=== PATIENT | female | born 1940 | race Caucasian/White ===

== ENCOUNTER 2018-12-01 16:59 | Observation (INO) ==
[2018-12-01] MEDS ORDERED: Acetaminophen 325 MG TABLET PO PRN (21:23)
[2018-12-01] MEDS ORDERED: Naloxone 0.4 MG/ML INJ IVP PRN (21:23)
[2018-12-01] MEDS ORDERED: Ondansetron 4 MG/2 ML VIAL IVP PRN (21:23)
--- NOTE | 2018-12-01 22:07 | Internal Med History&Physical ---
Date of Encounter: 12/01/18 Time of Encounter: 20:10 Internal Medicine - H&P: HPI Chief complaint: back pain Admitted From: Hospital to Hospital Transfer Plans for Post Hospital Care: Home History of present illness: Ms. Szymanski is a 78 year old female who presents in transfer from [facility] ER for complaints of intractable back pain. She has been seeing Dr. Chapa for pain management and undergoing spinal injections for pain control. However, over the last 4-5 days, she developed severe and intractable back pain. Dr. Chapa put her on some [place] with limited relief. She was unable to ambulate and/or move to the bathroom without excruciating pain radiating to her legs. She therefore came to ER at [facility] and underwent MRI of her spine. She was found to have evidence of disc protrusion at the T2-T3 level without any stenosis. Lumbar spine was nondiagnostic due to obscured views from her metallic hardware. She was therefore sent to [facility] for pain control and consultation with pain management. Upon my assessment of the patient, she is lying in bed and does not appear to be in any distress. She denies any numbness or weakness. She has chronic paresthesias of her legs which are not new. She denies any foot drop, paralysis, loss of bowel or bladder function, and/or numbness. Her only complaint is severe and intractable back pain from her mid back down to her legs, especially with ambulation and/or raising the legs. I reviewed her medication list and drug allergies. She states Percocet usually does well for her, and she can tolerate Percocet with good pain control and no adverse reactions. She received 2 doses of IV morphine at [facility] with significant relief of her pain but is making her dizzy and somewhat intoxicated. She prefers to try oral medications first. She requests consultation with pain management and/or possible spine surgery for definitive plan of her pain control. She does not wish to consider surgical intervention as she has had multiple back surgeries in the past. Past Med Surg Social Fam HX - Past Medical History Attestation: Yes The following information was validated with the patient. Source: patient Medical history: arthritis, CHF, coronary artery disease, GERD, hyperlipidemia, hypertension, migraine, thyroid disease Additional medical history: Hypothyroidism Psychiatric history: anxiety, bipolar, depression, panic disorder - Past Surgical History Surgical History: cholecystectomy, hysterectomy, knee replacement, orthopedic, other Additional surgical history: Back surgeries - Social History Smoking Status: Never smoker Smokeless Tobacco Status: No Alcohol use: rarely Drug use: none Current living situation: Home, With Family Activity Level: Independent ambulation Recent Out of Country Travel Within the Last 8 Weeks: No - Family History Mother Living Status: Hx Family Musculoskeletal Disorders: No Father Living Status: Hx Family Musculoskeletal Disorders: No Internal Medicine - H&P: Meds Levothyroxine [Synthroid] 75 mcg PO 0630 05/17/15 [History] Losartan [Cozaar] 50 mg PO BID 05/17/15 [History] LORazepam [Ativan] 1 mg PO BID 07/11/17 [History] Ranitidine HCl [Acid Ice Cream Maker] 150 mg PO DAILY 07/11/17 [History] Aspirin 325 mg PO DAILY 12/01/18 [History] Biotin 1,000 mg PO DAILY 12/01/18 [History] Cyclobenzaprine [Flexeril] 10 mg PO TID PRN 12/01/18 [History] Doxepin HCl 10 mg PO HS 12/01/18 [History] FLUoxetine HCl [PROzac] 60 mg PO DAILY 12/01/18 [History] Gabapentin [Neurontin] 800 mg PO TID 12/01/18 [History] HYDROcodone/Acet 5/325 mg [[place] 5-325 mg] 1 tab PO Q6H PRN 12/01/18 [History] Oxybutynin [Ditropan] 5 mg PO BID 12/01/18 [History] Zolmitriptan [Zomig] 5 mg PO DAILY PRN 12/01/18 [History] Allergy/AdvReac Type Severity Reaction Status Date / Time carbamazepine [From Tegretol] Allergy Difficulty Verified 11/22/16 21:41 Swallowing celecoxib [From Celebrex] Allergy Rash Verified 11/22/16 21:41 duloxetine [From Cymbalta] Allergy Difficulty Verified 11/22/16 21:41 Breathing naproxen [From Naprosyn] Allergy Rash Verified 12/01/18 20:23 NSAIDS (Non-Steroidal Allergy Anxiety Verified 12/01/18 20:23 Anti-Inflamma pregabalin [From Lyrica] Allergy Difficulty Verified 11/22/16 21:41 Breathing quetiapine [From Seroquel] Allergy Unresponsiv Verified 12/01/18 20:23 e rofecoxib [From Vioxx] Allergy Rash Verified 12/01/18 20:23 Sulfa (Sulfonamide Allergy Hives Verified 12/01/18 20:23 Antibiotics) titanium Allergy See Verified 12/01/18 20:23 Comments baclofen AdvReac Confusion Verified 12/01/18 20:23 citalopram [From Celexa] AdvReac Confusion Verified 12/01/18 20:23 latex AdvReac Rash Verified 12/01/18 20:23 levofloxacin [From Levaquin] AdvReac Weakness Verified 12/01/18 20:23 oxycodone [From OxyContin] AdvReac Confusion Verified 12/01/18 20:23 Ydqkygx-Mmw-Sqf Reductase AdvReac Weakness Verified 12/01/18 20:23 Inhibitor [Statins] Verapamil AdvReac Anxiety Verified 12/01/18 20:23 - Constitutional Constitutional: no chills, no fever(s), no night sweats - EENT Eyes: no blurry vision, no change in vision Ears: no ear pain, no tinnitus Nose, mouth and throat: no nasal congestion, no sinus pressure, no sore throat - Cardiovascular Cardiovascular ROS IM: no chest pain, no dyspnea, no lightheadedness, no orthopnea, no paroxysmal nocturnal dyspnea, no syncope - Respiratory Respiratory: no cough, no dyspnea, no chest congestion, no excessive phlegm production - Gastrointestinal Gastrointestinal: no abdominal pain, no diarrhea, no hematemesis, no hematochezia, no melena, no nausea, no vomiting - Genitourinary Genitourinary: no dysuria, no flank pain, no hematuria - Musculoskeletal Musculoskeletal ROS IM: arthralgias, back pain, no neck pain, no numbness, no tingling - Integumentary Integumentary IM: no rash, no jaundice - Neurological Neurological ROS: paresthesias (chronic peripheral neuropathy in her feet -- not new), no convulsions, no dizziness, no focal weakness, no frequent falls, no headache(s) - Psychiatric Psychiatric: anxiety - Endocrine Endocrine IM: no polydipsia, no polyuria - Allergic/Immunologic Allergic/Immunologic: no GI upset with certain foods - Constitutional Vitals: Temp Pulse Resp BP Pulse Ox 98.3 F 61 17 181/72 96 12/01/18 19:15 12/01/18 19:15 12/01/18 19:15 12/01/18 19:15 12/01/18 19:15 General appearance: Present: cooperative, A&O X 3, pleasant, answers questions appropriately Exam: moderate pain in back - Head Head exam: Present: atraumatic, normal inspection - Eye Eye exam: Present: EOMI, PERRL. Absent: scleral icterus - ENT ENT exam: Present: mucous membranes dry, normal exam, normal oropharynx - Neck Neck exam general surgery: Present: full ROM, supple, trachea midline. Absent: tenderness, nuchal rigidity, thyromegaly - Respiratory Respiratory exam: Present: CTAB. Absent: chest wall tenderness, rales, rhonchi, wheezes - Cardiovascular Cardiovascular exam: Present: RRR, +S1, +S2. Absent: diastolic murmur, systolic murmur - GI/Abdominal GI/Abdominal exam: Present: normal bowel sounds, soft. Absent: guarding, hepatomegaly, mass, rebound, splenomegaly, tenderness - Extremities Exam Extremities exam: Present: full ROM, normal capillary refill, warm, radial pulses palpable and symmetrical. Absent: calf tenderness, pedal edema, tenderness - Back Exam Additional comments: pain in mid-low back on palpation - Neurological Exam Neurological exam: Present: alert, CN II-XII intact, oriented X3, reflexes normal, no focal deficits, strengths equal and symetr throughout Additional comments: no focal deficits other than chronic neuropathy in feet - Psychiatric Psychiatric exam: Present: anxious - Skin Skin exam: Present: dry, intact, warm Internal Med - H&P Results - Labs Labs: I reviewed her labs from [facility] and include the following: WBC 4.4 Hemoglobin 11.7 Hematocrit 35.5 Platelets 189 Sodium 143 Potassium 4.2 Chloride 109 CO2 27 BUN 19 Creatinine 1.21 MRI findings reviewed - Assessment and Plan (1) Intractable low back pain Current Visit: Yes Status: Acute Assessment and plan: 1. Will try oral Percocet for now and add IV pain meds for breakthrough pain if necessary. 2. Will add systemic steroids. 3. Consult Pain management and spine surgery (if necessary). 4. PT/OT consults after adequate pain control. (2) Bipolar 1 disorder Current Visit: Yes Status: Acute Assessment and plan: 1. Resume home meds as appropriate. (3) DVT prophylaxis Current Visit: Yes Status: Acute Assessment and plan: 1. Heparin SQ.
[2018-12-01] MEDS: *HR* LORazepam 1 MG TABLET PO SCH (22:27)
[2018-12-01] MEDS: 0.9 % Sodium Chloride 1,000 ML IVC SCH (22:27)
[2018-12-01] MEDS: *HR* Heparin 5,000 UNIT/ML VIAL SQ SCH (22:27)
[2018-12-01] MEDS: Gabapentin 400 MG CAPSULE PO SCH (22:27)
[2018-12-02 03:30] LABS: Basophils % 0.7 %; Eosinophils # 0.2 K/mcL (0.0-0.6); Eosinophils % 3.5 %; Hematocrit 34.8 % (35.3-44.9); Hemoglobin 11.2 g/dL (11.5-15.4); Immature Granulocytes % 0.2 % (0-4); Lymphocytes # 1.8 K/mcL (0.6-4.6); Lymphocytes % 39.8 %; Mean Corpuscular HGB Conc 32.2 g/dL (31.6-35.5); Mean Corpuscular Hemoglobin 31.5 pg (28.0-33.3); Mean Corpuscular Volume 97.8 fL (83.0-100.0); Mean Platelet Volume 9.7 fL (9.4-12.4); Monocytes # 0.4 K/mcL (0.0-1.3); Monocytes % 8.9 %; Neutrophils # 2.2 K/mcL (1.6-8.9); Platelet Count 194 K/mcL (140-400); Red Blood Count 3.56 M/mcL (3.82-4.97); Red Cell Distribution Width 13.5 % (11.5-14.5); Segmented Neutrophils % 46.9 %
[2018-12-02 03:40] LABS: Prothrombin Time 11.5 Seconds (9.4-12.1)
[2018-12-02 03:43] LABS: Activated Partial Thrombo Time 32.2 Seconds (26.0-36.0)
[2018-12-02 03:47] LABS: Calcium 9.1 mg/dL (8.6-10.3); Magnesium 2.2 mg/dL (1.6-2.6)
[2018-12-02] MEDS: *HR* OxyCODONE/APAP 5/325 TABLET PO PRN ×2 (05:32→17:24)
[2018-12-02] MEDS: MethylPREDNISolone 40 MG/ML VIAL IVP SCH ×2 (05:33→18:18)
[2018-12-02] MEDS: Famotidine 20 MG TABLET PO SCH (05:33)
[2018-12-02] MEDS: *HR* Heparin 5,000 UNIT/ML VIAL SQ SCH ×2 (05:33→18:18)
[2018-12-02] MEDS: FLUoxetine 20 MG CAPSULE PO SCH (08:02)
[2018-12-02] MEDS: Aspirin 325 MG TABLET PO SCH (08:02)
[2018-12-02] MEDS: Gabapentin 400 MG CAPSULE PO SCH ×3 (08:03→20:22)
[2018-12-02] MEDS: *HR* LORazepam 1 MG TABLET PO SCH ×2 (08:03→20:22)
[2018-12-02] MEDS: 0.9 % Sodium Chloride 1,000 ML IVC SCH (08:07)
--- NOTE | 2018-12-02 08:18 | Internal Med Progress Note ---
<EarletonyIris - Last Filed: 12/02/18 11:15> Hospitalist Progress Note - Encounter Date of Encounter: 12/02/18 Time of Encounter: 09:59 - Subjective Interval History: Pt c/o LE pain and weakness, worse on the R than L, and made worse when her legs are not elevated and extended. Pt denies abdominal pain, loss of bowl or bladder control, n/v, trauma or falls. - Exam Vitals: Temp Pulse Resp BP Pulse Ox 98.7 F 60 14 153/68 93 12/02/18 06:57 12/02/18 06:57 12/02/18 06:57 12/02/18 06:57 12/02/18 06:57 Exam: Gen: laying in bed, awake and alert, NAD ENT: MMM Resp: CTAB no wheezes/rales CV: RRR, no murmurs Abd: soft, NTTP, no rebound or guarding Neuro: A&O to person place and time. LE 4/5 strength with hip extension, 5/5 plantar and dorisflexion. Sensory intact. Unable to perform heel to mead 2/2 weakness and increase pain with movement. UE strength 5/5 Skin: warm and dry Psych; appropriate mood and congruent affect. - Assessment and Plan (1) Intractable back pain Current Visit: Yes Status: Acute Assessment and Plan: Chronic LBP and LE pain 2/2 siactic nerve pain No new neuro deficits, no bowl/bladder incontinence, no fall or trauma Pt was controlled on percocets Plan: spoke with pain management, Dr. Chapa; rec trial oxycodone 10 will trial PO oxycodone PT/OT for walk/motor eval plan to d/c tomorrow if pain controlled and no new neuro deficits (2) DVT prophylaxis Current Visit: Yes Status: Acute Assessment and Plan: heparin sq (3) Bipolar 1 disorder Current Visit: Yes Status: Acute Assessment and Plan: chronic per Dr. Chapa, pt often has increased anxiety with pain flares Plan: Continue home rx of ativan and prozac - Time Spent with Patient Total time spent is greater than 50% in coordination of care (as documented) at patient's floor/unit and/or counseling patient: Internal Medicine: Result - Labs CBC & Chem 7: 12/02/18 02:50 12/02/18 02:50 Labs: Short CBC 12/02/18 Range/Units 02:50 WBC 4.6 (4.3-11.1) K/mcL Hgb 11.2 L (11.5-15.4) g/dL Hct 34.8 L (35.3-44.9) % Plt Count 194 (140-400) K/mcL Neutrophils # 2.2 (1.6-8.9) K/mcL BMP 12/02/18 02:50 Sodium 140 Potassium 4.0 Chloride 112 H Carbon Dioxide 27 BUN 19 Creatinine 1.11 Glucose 91 Calcium 9.1 - ABG Interpretation ABG results: PT/INR, D-dimer PT 11.5 Seconds (9.4-12.1) 12/02/18 02:50 Consult Discharge Plan - Plan Referrals: Mary Stone MD [Primary Care Provider] - <Marlin Whitaker - Last Filed: 12/02/18 17:58> Hospitalist Progress Note - Encounter Date of Encounter: 12/02/18 - Exam Vitals: Temp Pulse Resp BP Pulse Ox 98.4 F 62 15 153/75 93 12/02/18 15:27 12/02/18 15:27 12/02/18 15:27 12/02/18 15:27 12/02/18 15:27 - Assessment and Plan (1) Intractable low back pain Current Visit: Yes Status: Inactive (2) Bipolar 1 disorder Current Visit: Yes Status: Acute (3) DVT prophylaxis Current Visit: Yes Status: Acute - Time Spent with Patient Total time spent is greater than 50% in coordination of care (as documented) at patient's floor/unit and/or counseling patient: Internal Medicine: Result - Labs CBC & Chem 7: 12/02/18 02:50 12/02/18 02:50 Labs: Short CBC 12/02/18 Range/Units 02:50 WBC 4.6 (4.3-11.1) K/mcL Hgb 11.2 L (11.5-15.4) g/dL Hct 34.8 L (35.3-44.9) % Plt Count 194 (140-400) K/mcL Neutrophils # 2.2 (1.6-8.9) K/mcL BMP 12/02/18 02:50 Sodium 140 Potassium 4.0 Chloride 112 H Carbon Dioxide 27 BUN 19 Creatinine 1.11 Glucose 91 Calcium 9.1 - ABG Interpretation ABG results: PT/INR, D-dimer PT 11.5 Seconds (9.4-12.1) 12/02/18 02:50 - Attending Attestation The history, physical exam, and medical decision making was performed by the medical student Ajay either while I was physically present and actively involved or I personally re-performed the exam and medical decision making. I have verified the accuracy of the medical student's documentation with regards to the history, physical exam findings, and medical decision making. Ms Szymanski is being observed for acute on chronic back and leg pain awake in chair, she is actually comfortable appearing initially, shows me her legs and easily rraises them, then later in my exam raises them with difficulty, appears uncomfortable and moves herself from chair to bed. She denies fevers, chills, spinous process pain, saddle numbness/tingling, stool incontinence, she has bladder incontinence chronically and it is at baseline. she deneis weakness in the legs, pain in low back that is new, no pain in back with raising legs, no new numbness/tingling, reporting her peripheral neuropathy is at baseline gen- awake, alert, nad cv- rrr, no murmurs, no le edema lungs- ctabl, no wheezing, crackles, normal resp effort on ra abd- soft, non tender, non distended, normal bs msk- no tenderness to palpation of spinous processes, rom hips, knees, ankles intact and painless neuro- AAOx3, cn intact, straight leg raise without pain, sensation to bl feet reduced equally to light touch and at abseline per pt, sensation to temperature (cold) intact, no focal sensory losses, strength intact and equal throughout all ext Intractable acute on chronic low back pain with radiation to bl thighes- now better controlled with opiates -Dr Chapa was contacted, he is not radiosonde operator and will not be in to see her, however she has fu appt next week with him -he was generous enough to proivde addl pt information, noting these complaints are chronic in nature and he could not appreciate acuity to this presentation. -he recommends starting oxycodone -will will do this today and monitor for effects -pt/ot -outpt pain management follow up as scheduled -if she develops any new or focal neuro deficits will obtain MRI L spine Anxiety/Panic DO/Depression -she reported to nursing great stress due to family supposed to be arriving from [place] and that she didn't have cleaning lady, feeling anxious and was hoping they woundt come -cont home meds
[2018-12-02] MEDS ORDERED: Psyllium 1 PACKET POWD.PACK PO SCH (21:00)
[2018-12-02] MEDS ORDERED: DOXEPIN 10MG PO SCH (21:00)
[2018-12-03] MEDS: MethylPREDNISolone 40 MG/ML VIAL IVP SCH (05:58)
[2018-12-03] MEDS: Famotidine 20 MG TABLET PO SCH (05:58)
[2018-12-03] MEDS: *HR* Heparin 5,000 UNIT/ML VIAL SQ SCH (05:58)
[2018-12-03] MEDS: *HR* OxyCODONE/APAP 5/325 TABLET PO PRN (07:05)
[2018-12-03] MEDS: Aspirin 325 MG TABLET PO SCH (08:48)
[2018-12-03] MEDS: *HR* LORazepam 1 MG TABLET PO SCH (08:48)
[2018-12-03] MEDS: Gabapentin 400 MG CAPSULE PO SCH (08:48)
[2018-12-03] MEDS: FLUoxetine 20 MG CAPSULE PO SCH (08:48)
--- NOTE | 2018-12-03 10:24 | Electrocardiograph Report ---
[address] [place] [address] Test Date: 2018-12-01 Pat Name: Lo Szymanski Department: 114 Room: [facility] Gender: F Senior Electronics Design Engineer: : [id number] Requested By: Campos Mar Order Number: [id number] Reading MD: Lacy Nj Measurements Intervals [place] Rate: 65 P: 48 CO: 198 QRS: -1 QRSD: 96 T: 51 QT: 420 QTc: 432 Interpretive Statements SINUS RHYTHM POSSIBLE ANTERIOR MYOCARDIAL INFARCTION, PROBABLY OLD Electronically Signed On 12-03-2018 10:22:39 EDT by Lacy Nj
--- NOTE | 2018-12-03 10:36 | Discharge Summary ---
<Arnav Herman - Last Filed: 12/03/18 10:32> Date of Encounter: 12/03/18 Time of Encounter: 10:32 - Discharge Diagnosis (1) Intractable back pain Priority: Primary Status: Acute (2) Bipolar 1 disorder Priority: Secondary Status: Acute (3) DVT prophylaxis Priority: Secondary Status: Acute Hospital course: Ms. Szymanski is a 78 year old female presented to [facility] for intractable back pain. Patient follows Dr. Chapa and is undergoing spinal injections for pain control however for the last 4-5 days before admission she has severe back pain which was refractory to [place]. She underwent MRI of the thoracic which was negative for any acute changes but did show disc protrusion at T2/T3 level without any stenosis.lumbar spine MRI was nondiagnostic due to this. He is from her metallic hardware.patient was transferred to [facility] for pain management consultation. While pain management was not able to see patient in the hospital, hospitalist were able to talk to Dr. Chapa who states patient has chronic back pain and we can trial her on Percocet.Patient reports her pain is controlled this morning. She does not have any neuro deficits on exam. She is able to ambulate.she has no deficits in her lab work. We will discharge patient today on Percocet for for total days until she follows up with Dr. Chapa next . Discharge discussed with: patient - Time Spent with Patient Total time spent providing and/or coordinating discharge services: - Discharge Medications Prescriptions: New OxyCODONE/APAP 5/325 [Percocet 5/325 MG] 1 each PO Q6HR PRN 4 Days #16 tablet PRN Reason: Pain Continue Aspirin 325 mg PO DAILY Losartan [Cozaar] 50 mg PO BID Levothyroxine [Synthroid] 75 mcg PO 0630 LORazepam [Ativan] 1 mg PO BID Ranitidine HCl [Acid Manager Floor] 150 mg PO DAILY Biotin 1,000 mg PO DAILY Gabapentin [Neurontin] 800 mg PO TID Doxepin HCl 10 mg PO HS Cyclobenzaprine [Flexeril] 10 mg PO TID PRN PRN Reason: Muscle Spasms Oxybutynin [Ditropan] 5 mg PO BID Zolmitriptan [Zomig] 5 mg PO DAILY PRN PRN Reason: Headache FLUoxetine HCl [Prozac] 60 mg PO DAILY Discontinued HYDROcodone/Acet 5/325 mg [[place] 5-325 mg] 1 tab PO Q6H PRN PRN Reason: Pain Home Medications: Levothyroxine [Synthroid] 75 mcg PO 0630 05/17/15 [History] Losartan [Cozaar] 50 mg PO BID 05/17/15 [History] LORazepam [Ativan] 1 mg PO BID 07/11/17 [History] Ranitidine HCl [Acid Manager Floor] 150 mg PO DAILY 07/11/17 [History] Aspirin 325 mg PO DAILY 12/01/18 [History] Biotin 1,000 mg PO DAILY 12/01/18 [History] Cyclobenzaprine [Flexeril] 10 mg PO TID PRN 12/01/18 [History] Doxepin HCl 10 mg PO HS 12/01/18 [History] FLUoxetine HCl [Prozac] 60 mg PO DAILY 12/01/18 [History] Gabapentin [Neurontin] 800 mg PO TID 12/01/18 [History] Oxybutynin [Ditropan] 5 mg PO BID 12/01/18 [History] Zolmitriptan [Zomig] 5 mg PO DAILY PRN 12/01/18 [History] OxyCODONE/APAP 5/325 [Percocet 5/325 MG] 1 each PO Q6HR PRN 4 Days #16 tablet 12/03/18 [Rx] Allergies/Adverse Reactions: Allergy/AdvReac Type Severity Reaction Status Date / Time carbamazepine [From Tegretol] Allergy Difficulty Verified 11/22/16 21:41 Swallowing celecoxib [From Celebrex] Allergy Rash Verified 11/22/16 21:41 duloxetine [From Cymbalta] Allergy Difficulty Verified 11/22/16 21:41 Breathing naproxen [From Naprosyn] Allergy Rash Verified 12/01/18 20:23 NSAIDS (Non-Steroidal Allergy Anxiety Verified 12/01/18 20:23 Anti-Inflamma pregabalin [From Lyrica] Allergy Difficulty Verified 11/22/16 21:41 Breathing quetiapine [From Seroquel] Allergy Unresponsiv Verified 12/01/18 20:23 e rofecoxib [From Vioxx] Allergy Rash Verified 12/01/18 20:23 Sulfa (Sulfonamide Allergy Hives Verified 12/01/18 20:23 Antibiotics) titanium Allergy See Verified 12/01/18 20:23 Comments baclofen AdvReac Confusion Verified 12/01/18 20:23 citalopram [From Celexa] AdvReac Confusion Verified 12/01/18 20:23 latex AdvReac Rash Verified 12/01/18 20:23 levofloxacin [From Levaquin] AdvReac Weakness Verified 12/01/18 20:23 oxycodone [From OxyContin] AdvReac Confusion Verified 12/01/18 20:23 Vnvcetm-Aso-Vkv Reductase AdvReac Weakness Verified 12/01/18 20:23 Inhibitor [Statins] Verapamil AdvReac Anxiety Verified 12/01/18 20:23 Date of admission: 12/01/18 18:36 Primary care physician: Mary Stone MD Consults: 12/02/18 15:56 Consult to Physical Therapy [CONS] Routine Comment: Evaluate, develop and implement POC Reason for Consult: PATIENT BMAT 3, ADMITTED WITH UNABLE TO AMBULATE, CHRONIC BACK PAIN, EVAL AND TREAT Does patient have active BEDREST order?: No Is patient medically & hemodynamically stable?: Yes 12/02/18 15:57 Consult to Occupational Therapy [CONS] Routine Comment: Evaluate, develop and implement POC Reason for Consult: PATIENT BMAT 3, ADMITTED WITH UNABLE TO AMBULATE, CHRONIC BACK PAIN, EVAL AND TREAT Does patient have active BEDREST order?: No Is patient medically & hemodynamically stable?: Yes Discharging clinician: Arnav Herman Anticipated date of discharge: 12/03/18 - Constitutional Vitals: Temp Pulse Resp BP Pulse Ox 97.4 F L 60 17 146/88 94 12/03/18 08:06 12/03/18 08:06 12/03/18 08:06 12/03/18 08:06 12/03/18 08:06 General appearance: Present: cooperative, A&O X 3, pleasant, answers questions appropriately Exam: General: pleasant, without distress HEENT: Head atraumatic, normocephalic, EOMI, PERRL, absent ear discharge or trauma, Moist Mucous Membranes, uvula midline Neck: nontender to palpation, absent lymphadenopathy, Cardiovascualr: Regular rate and rhythm with no murmur, absent gallops or rubs, absent pedal edema, radial pulses 2 out of 4 Lungs: Clear to auscultation bilaterally, not in respiratory distress Abdomen: Soft nontender, nondistended positive bowel sounds, absent hepatomegaly Skin: warm and dry, absent rash, absent open wounds and nodules MSK: absent clubbing, cyanosis, joints without swelling Neuro: Cranial nerves II through XII intact, UE and LE sensation equal bilaterally, UE and LEstrength 5/5, alert oriented 3, gait intact Psych: good insight and judgment - Patient Status Disposition: Home, Self-Care Condition: Good Functional capacity at discharge: independent ambulation Overall status at discharge: patient is progressing back to baseline - Discharge Instructions Instructions: Acute Low Back Pain (DC) Follow Up With: Mary Stone MD [Primary Care Provider] - - Diet and Activity Activity: increase activity as tolerated Diet: advance to your usual diet <Fawn Enriquez - Last Filed: 12/03/18 16:42> Date of Encounter: 12/03/18 - Discharge Diagnosis (1) Intractable low back pain Status: Inactive (2) Bipolar 1 disorder Status: Acute (3) DVT prophylaxis Status: Acute Hospital course: Ms. Szymanski is a 78 year old female - Time Spent with Patient Total time spent providing and/or coordinating discharge services: Date of admission: 12/01/18 18:36 Primary care physician: Mary Stone MD Consults: 12/02/18 15:56 Consult to Physical Therapy [CONS] Routine Comment: Evaluate, develop and implement POC Reason for Consult: PATIENT BMAT 3, ADMITTED WITH UNABLE TO AMBULATE, CHRONIC BACK PAIN, EVAL AND TREAT Does patient have active BEDREST order?: No Is patient medically & hemodynamically stable?: Yes 12/02/18 15:57 Consult to Occupational Therapy [CONS] Routine Comment: Evaluate, develop and implement POC Reason for Consult: PATIENT BMAT 3, ADMITTED WITH UNABLE TO AMBULATE, CHRONIC BACK PAIN, EVAL AND TREAT Does patient have active BEDREST order?: No Is patient medically & hemodynamically stable?: Yes - Constitutional Vitals: Temp Pulse Resp BP Pulse Ox 98.8 F 57 18 147/54 95 12/03/18 11:53 12/03/18 11:53 12/03/18 11:53 12/03/18 11:53 12/03/18 11:53 - Attending Attestation I examined this patient and my medical decision-making was reviewed with the Resident Physician. I agree with the documented findings, disposition and treatment plan as described except to the extent set forth below.
[2018-12-03 11:56] VITALS: BP 147/54
== END 2018-12-03 12:35 | disposition home or self-care (01) ==
LOC: 3NENU
PROVIDERS: ADMIT Internal Medicine; ATTEND Internal Medicine